=== PATIENT | male | born 1945 | race Caucasian/White ===

== ENCOUNTER 2018-08-16 17:54 | Emergency (ER) | payer OTHER ==
--- NOTE | 2018-08-16 18:09 | PDOC ---
History of Present Illness - General Chief Complaint: Laceration Stated Complaint: LEFT FINGER CUT Time Seen by Provider: 08/16/18 18:01 History Source: Patient, Significant Other Exam Limitations: No Limitations - History of Present Illness Initial Comments: 08/16/18 18:06 This is a 73 YOM with h/o A-fib on diltiazem and Xarelto, HTN, and HLD who p/w left index finger laceration sustained at 3 pm when he accidentally cut it with a experimental box tester. He states that there is no change any foreign bodies got into the wound, he washed it immediately afterward, and he wanted to stay home and let it heal without medical evaluation but he has a friend who is an RN and this friend told him he needed to come into the ED. There was never a significant amount of bleeding or pain. The patient denies any finger numbness, tingling, or weakness, and denies any additional injuries sustained during this incident. His last tetanus vaccination was two years ago. Past History - Past Medical History Allergies/Adverse Reactions: Allergies Allergy/AdvReac Type Severity Reaction Status Date / Time Cats Allergy Uncoded 08/16/18 18:11 Home Medications: Ambulatory Orders Atorvastatin Calcium 20 mg PO DAILY tablet 05/08/15 Krill/Om-3/Dha/Epa/Phospho/Ast [[place]-3 Krill Oil 1,000 Mg] 1 each PO DAILY capsule 05/08/15 Magnesium Oxide [Magnesium] 400 mg PO DAILY capsule 05/08/15 Ubidecarenone [Co Q-10] 100 mg PO DAILY capsule 05/08/15 Diltiazem Cd [Cardizem Cd -] 120 mg PO DAILY 08/16/18 Rivaroxaban [Xarelto -] 20 mg PO DAILY 08/16/18 Valsartan 320 mg PO DAILY 08/16/18 Review of Systems - Review of Systems Able to Perform ROS?: Yes Constitutional: No: Chills, Fever, Unexplained wgt Loss HEENTM: No: Nose Congestion, Throat Pain Respiratory: No: Cough, Shortness of Breath Cardiac (ROS): No: Chest Pain, Palpitations ABD/GI: No: Constipated, Diarrhea, Nausea, Vomiting : No: Burning, Dysuria Musculoskeletal: No: Back Pain, Neck Pain Integumentary: Yes: Other (finger laceration). No: Bruising, Rash Neurological: No: Headache, Numbness, Tingling, Weakness, Dizziness Endocrine: No: Unexplained Weight Gain, Unexplained Weight Loss *Physical Exam - Vital Signs 08/16/18 18:03 GENERAL: nontoxic and well-appearing, nourished, A/Ox4, no acute distress, speaking in full sentences, answers questions appropriately, appears comfortable , accompanied by his who is helpful with information gathering HEENT: PERRLA, EOMI, moist mucous membranes, no posterior pharyngeal erythema, no tonsillar swelling or exudates, no cervical lymphadenopathy NECK: No midline ttp, no spinal stepoff or deformity, full ROM, supple CARDIOVASCULAR: Regular rate and rhythm, normal S1S2, MGR, radial and DP pulses 2+ and symmetric, capillary refill <2 seconds, extremities warm and well- perfused LUNGS/RESPIRATORY: No respiratory distress, normal and symmetric chest movements during respirations, lungs CTA bilaterally, equal breath sounds, no cyanosis, no nail clubbing GI/ABDOMEN: Normal symmetric appearance, normoactive bowel sounds, soft, no tenderness to palpation, no midline pulsatile masses, no palpated organomegaly BACK: No midline ttp or stepoff or deformity of thoracic or lumbar spine EXTREMITIES: distal pulses 2+, warm and well-perfused, no LE edema SKIN: Right radial side of index finger with a 2 cm partial thickness linear laceration overlying the pip and proximal phalanx with fat exposure without significant bleeding, no drainage, initially wrapped in dressing, skin otherwise warm and dry, no pallor, no jaundice, no bruising, no rash, no skin breakdown NEUROLOGICAL: GCS 15, CN II-XII grossly intact, ambulating with normal gait, moving all extremities, 5/5 strength proximally and distally, no facial droop, no decreased sensation, right index finger with full sensation and motor function, good capillary refill Medical Decision Making - Medical Decision Making 08/16/18 18:02 Pt p/w laceration No e/o tendon, ligament, or bony injury. No obvious FB or debris. Last tDaP was 2 yrs ago. Initial Vital Signs Temp Pulse Resp BP Pulse Ox 98.3 F 86 16 123/85 98 08/16/18 17:56 08/16/18 17:56 08/16/18 17:56 08/16/18 17:56 08/16/18 17:56 Exam: As noted in Physical Exam section. DDX IBNLT: Simple skin/soft tissue laceration, tendon/ligament involvement, bony involvement, larger blood vessel injury, retained FB, wound contamination with risk for infection, etc. W/U ordered: None TX ordered: None except lac repair Laceration numbed, cleaned, repaired without issue as noted in Procedures section. Hemostasis achieved, good approximation, Bacitracin applied and wound dressed. Repeat VS: DISCHARGE The Pts laceration has been repaired without issue, ppx given as indicated. They do not require abx for this laceration. E-Rx is sent to their pharmacy for abx and they will take the whole course as Rx. Workup is not concerning for emergency-level pathology at this time. The Pt is appropriate for discharge with close outpatient follow up. They are comfortable with this plan and will follow up with their primary care provider in 1-3 days. Specific return precautions are discussed and they will come back to the ER if necessary. *DC/Admit/Observation/Transfer Diagnosis at time of Disposition: Finger laceration Qualifiers: Encounter type: initial encounter Finger: index finger Damage to nail status: without damage Foreign body presence: without foreign body Laterality: right Qualified Code(s): S61.210A - Laceration without foreign body of right index finger without damage to nail, initial encounter - Discharge Dispostion Disposition: HOME Condition at time of disposition: Good Decision to Admit order: No - Referrals Referrals: Devon Harvey [Primary Care Provider] - - Patient Instructions Printed Discharge Instructions: DI for Laceration Repair Additional Instructions: YOU WERE SEEN IN THE ER FOR A SKIN LACERATION. WE DID AN EXAM, IMAGING STUDIES, CLEANED AND REPAIRED THE LACERATION, AND MADE SURE YOUR TETANUS VACCINATION WAS UP TO DATE. AFTER OUR ASSESSMENT, WE DO NOT BELIEVE YOU ARE HAVING A MEDICAL EMERGENCY AT THIS TIME, AND WE BELIEVE YOU ARE SAFE TO GO HOME. PLEASE READ THE INFORMATION IN THIS PACKET ON HOW TO CARE FOR YOUR LACERATION. KEEP THE DRESSING ON YOUR WOUND FOR 24 HOURS AND KEEP THIS DRESSING CLEAN AND DRY. AFTER 24 HOURS, YOU CAN TAKE THE DRESSING OFF AND YOU CAN SHOWER AND GET THE WOUND WET , BUT DO NOT SCRUB THE WOUND AND DO NOT SOAK IT IN WATER. DO NOT GO SWIMMING OR TAKE A BATH OR SUBMERGE THE WOUND IN STANDING WATER. PUT A THIN LAYER OF ANTIBIOTIC OINTMENT ON THE WOUND ONCE IN THE MORNING AND ONCE IN THE EVENING. PLEASE FOLLOW UP WITH YOUR PRIMARY CARE PROVIDER TO HAVE THE SUTURES REMOVED, OR RETURN HERE TO THE ER TO HAVE THEM REMOVED. IF YOU HAVE ANY NEW OR WORSENING SYMPTOMS, ESPECIALLY INCREASING PAIN AND REDNESS TO THE AREA OR OTHER SIGNS OF INFECTION LIKE FEVER, PLEASE COME BACK TO THE ER AT ANY TIME (24 HOURS A DAY). IF YOU ARE HAVING SEVERE OR LIFE THREATENING SYMPTOMS, OR SYMPTOMS THAT MAKE IT UNSAFE TO DRIVE OR HAVE SOMEONE DRIVE YOU, PLEASE CALL 911. - Post Discharge Activity
[2018-08-16 18:21] VITALS: BP 123/85; PULSE 86; TEMP 98.3; BMI 30.9
--- NOTE | 2018-08-16 18:43 | PDOC ---
Attending Attestation - Resident Resident Name: Ana Bird - ED Attending Attestation I have performed the following: I have examined & evaluated the patient, The case was reviewed & discussed with the resident, I agree w/resident's findings & plan, Exceptions are as noted - HPI HPI: 08/16/18 18:38 73yo M hx AF on xarelto, HTN presents to the ED L 2nd digit lac after accidentally cutting himself with a box annealer. Pt washed his wound out and controlled the bleeding with pressure. Denies numbness or tingling in L 2nd digit. Doesn't remember last tdap. Was in his [facility] prior, denies fevers, chills , cp, sob, abd pain, n/v/d. - Physicial Exam PE: 08/16/18 18:43 agree with resident exam - Medical Decision Making 08/16/18 18:43 73yo M presents to the ED with ~1cm linear lac on radial aspect of L 2nd digit. +hemostasis. L 2nd digit NVI, normal sensation and strength. No need for XR as was clean cut by knife. Tdap UTD. Wound irrigated and lac repaired by Dr. Bird (see note for details). Scar counseling provided. Pt stable for DC home I discussed the physical exam findings, ancillary test results and final diagnoses with the patient. I answered all of the patient's questions. The patient was satisfied with the care received and felt comfortable with the discharge plan and treatment plan. The patient will call their primary care physician within 24 hours to arrange follow-up and will return to the Emergency Department with any new, persistent or worsening symptoms.
== END 2018-08-16 18:58 | disposition home or self-care (01) ==
LOC: FER 17:54
PROC: 0HQGXZZ Repair Left Hand Skin, External Approach (ICD-10-PCS; principal; 2018-08-16)
DX: S61.211A Laceration without foreign body of left index finger without damage to nail, initial encounter (principal); W45.8XXA Other foreign body or object entering through skin, initial encounter; Y93.89 Activity, other specified; Y92.89 Other specified places as the place of occurrence of the external cause; I48.91 Unspecified atrial fibrillation; I10 Essential (primary) hypertension; E78.5 Hyperlipidemia, unspecified; Z79.01 Long term (current) use of anticoagulants
CPT/HCPCS: 99282-25